=== PATIENT | male | born 1960 | race Caucasian/White ===

== ENCOUNTER → 2020-11-09 09:39 | Outpatient (CLI) | payer BC, SELFPAY ==
--- NOTE | ~2020-11-09 | XR_ITS ---
EXAMINATION: XR hand BI arthritis min 3V EXAM DATE: 11/09/2020 10:17 INDICATION: M05.79 - Rheumatoid arthritis with rheumatoid factor of multiple sites without organ or s ystems involvement . TECHNIQUE: Right hand frontal, lateral and oblique projections obtained and reviewed. Left hand fron zeeshan, lateral and oblique projections obtained and reviewed. Catchers projection of both hands. There is no prior study for comparison. FINDINGS: Right hand: There is moderate to severe loss of the 1st MCP joint with moderate-sized erosions along the bare areas consistent with rheumatoid arthritis, and mild subluxation at this joint. There is als o moderate to severe loss of the radiocarpal joint space. There is ulnar positive variance. There are no acute fractures identified. Left hand: Moderate to severe loss of the 2nd MCP joint space, probable tiny periarticular erosions. Mild inferior subluxation of this proximal phalanx. Moderate to severe loss of the radiocarpal joint space and mild to moderate diffuse loss of other carpal joint spaces. There are no acute fractures id entified. IMPRESSION: Polyarticular arthritis, appearance consistent with rheumatoid etiology. Reviewed, dictated and finalized at location A. IMPRESSION: Polyarticular arthritis, appearance consistent with rheumatoid chirag ology.
--- NOTE | ~2020-11-09 | XR_ITS ---
EXAMINATION: XR foot RT standing 2V, XR foot LT standing 2V EXAM DATE: 11/09/2020 10:17 INDICATION: M05.79 - Rheumatoid arthritis with rheumatoid factor of mult. TECHNIQUE: Frontal and lateral projections of the right foot standing. Frontal and lateral projectio ns of the left foot standing. There are no prior studies for comparison. FINDINGS: Right foot: Moderate to severe loss of the joint space at the 5th MTP joint, moderate at the 2nd and 3rd MTP joints. There is chronic flattening of the 5th metatarsal head. Linear lucency along the base of the 5th proximal phalanx, possible subacute fracture. Tiny erosion at the base of the 1st distal phalanx. 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 There is severe deformity of the 5th metat arsal head with subluxed or dislocated proximal phalanx. Tiny erosion at the base of the 1st distal p halanx, symmetric to the contralateral side. There are no acute fractures identified. IMPRESSION: 1. Possible subacute right 5th proximal phalangeal base fracture. 2. Polyarticular osteoarthritis, other chronic findings. Reviewed, dictated and finalized at location A. IMPRESSION: 1. Possible subacute right 5th proximal phalangeal base fracture. 2. Polyarticular osteoarthritis, other chronic findings.
--- NOTE | ~2020-11-09 | XR_ITS ---
EXAMINATION: XR sacroiliac joints min 3V EXAM DATE: 11/09/2020 10:17 INDICATION: M05.79 - Rheumatoid arthritis with rheumatoid factor of multiple sites without organ or s ystems involvement. TECHNIQUE: Frontal and bilateral oblique projections of the sacroiliac joints. There is no prior st udy for comparison. FINDINGS: Sacrum, sacroiliac joints, sacral arcuate lines are intact. There are no bony erosions iden tified. Moderate disc disease L5-S1. The soft tissue is unremarkable. IMPRESSION: Unremarkable XR sacroiliac joints min 3V exam. Reviewed, dictated and finalized at location A.
== END ==
PROVIDERS: PCP Internal Medicine; Visit Provider Internal Medicine
DX: M05.79 Rheumatoid arthritis with rheumatoid factor of multiple sites without organ or systems involvement (principal); M19.072 Primary osteoarthritis, left ankle and foot; M19.071 Primary osteoarthritis, right ankle and foot
CPT/HCPCS: 72202; 73130; 73620